=== PATIENT | female | born 1970 | race Caucasian/White ===

== ENCOUNTER 2019-06-24 14:49 | Emergency (ER) | payer MEDICAID, SELFPAY ==
[2019-06-24 14:53] VITALS: BP 157/92; PULSE 84; RESP 16; TEMP 36.6; O2SAT 98
--- NOTE | 2019-06-24 15:37 | W.ED.GENAD ---
Discharge Plan Disposition Patient Disposition: HOME Condition: Stable Discharge Details Chief Complaint: RespSymp Clinical Impression: Infection of eyelid, Sinusitis Primary Care Provider: Josh Thornton ED Provider: Marissa Diallo Home Meds and New Rx's Prescriptions: New doxycycline hyclate 100 mg tablet 100 mg PO BID 7 Days Qty: 14 RF: 0 Continued Breo Ellipta 1 EACH blister with device 1 ea Inhalation DAILY RF: 0 hydrochlorothiazide 25 mg Tablet 25 mg PO QAM RF: 0 levalbuterol tartrate [Xopenex HFA] 45 mcg/actuation Hfa Aerosol Inhaler 2 - 4 inh INHALATION Q6H RF: 0 Discharge Instructions Instructions: Sinusitis (ED), Blepharitis (ED) Additional Instructions: Apply the erythromycin ointment to your lower eyelid 4 times daily for the next 5 days. Apply warm compresses to the affected area several times daily for 20 minutes at a time. If you have no relief in symptoms with warm compresses or ointment, you can start the oral antibiotics. Alternate tylenol and motrin as needed and directed for pain. Follow-up with your primary care doctor in 1 week. Return to the emergency department with any worsening or new concerning symptoms. Discharge Data Discharge Date/Time-TO BE ENTERED AT DEPARTURE: 06/24/19 15:50 Discharge Physician: Marissa Diallo Medical Decision Making 48-year-old female with a history of asthma, migraines and obesity presents with left lower eye and left facial pain and swelling since yesterday. Patient states she has a chronic issue with her sinuses in which they easily fill with fluid but she states ENT told her medical science is not there yet to help this issue . She states the area underneath her left eye and left facial cheek is swollen, tender to touch and worse when laying flat. She denies any known fever. She denies any green nasal discharge, sore throat, ear pain or coughing. She denies any vision changes, dizziness or headache. Left lower eyelid mild to moderately edematous, erythematous with tenderness to palpation. Left maxillary sinus demonstrates minimal fullness and moderate tenderness to palpation. Remainder of ENT exam within normal limits. No submandibular swelling, trismus, drooling or lymphadenopathy. Remainder of eye exam within normal limits. PERRLA. EOMI. No pain with EOM. Differential diagnosis includes local cellulitis, sinusitis, blepharitis. Exam and history does not appear consistent with periorbital or orbital cellulitis or dental abscess. Will give a tube of erythromycin ointment to place to lower eyelid as well as a prescription for Augmentin if no relief with ointment. She is advised to apply warm compresses to area, alternate Tylenol and Motrin. Advised to follow up with the primary care doctor for re-evaluation. Usual and customary return precautions given prior to discharge. Medical Records Medical records reviewed: Yes I reviewed the patient's medical records. HPI General Mode of arrival: ambulatory. Date/Time Provider Initiated Documentation: 06/24/19 15:18. Limitations to Documentation: no limitations. Information obtained by: patient. History of Present Illness 48 year old F presents to the emergency department with the chief complaint of left lower eyelid pain/swelling, L facial pain , and is localized to the face. Patient reports no radiation. Patient started experiencing this day(s) (1) and it has been constant. No relieving factors improve symptom(s), Other factors that worsen symptoms (laying flat) . Patient notes denies confusion, chest pain, cough, diaphoresis, fever/chills, headaches, loss of appetite, malaise, nausea/vomiting, rash, seizure, shortness of breath, syncope and weakness. Patient did receive the following treatments prior to arrival, other (warm tea bags to L eye/face) Related Data Home Medications Medication Instructions Recorded Confirmed Breo Ellipta 1 ea INHALATION DAILY 12/08/16 06/24/19 doxycycline hyclate 100 mg PO BID 7 Days #14 tab 06/24/19 hydrochlorothiazide 25 mg PO QAM 06/24/19 06/24/19 levalbuterol tartrate [Xopenex HFA] 2 - 4 inh INHALATION Q6H 06/24/19 06/24/19 Previous Rx's Medication Instructions Recorded doxycycline hyclate 100 mg PO BID 7 Days #14 tab 06/24/19 Allergies Allergy/AdvReac Type Severity Reaction Status Date / Time amoxicillin [Amoxicillin] Allergy Mild Hives Unverified 06/24/19 15:00 atenolol AdvReac Mild not Unverified 06/24/19 15:00 tolerated by pt General Stated Complaint: RespSymp KIMMIE: 4 Review of Systems All systems reviewed & are unremarkable except as noted in HPI and below Constitutional Constitutional: Reports as per HPI, Denies chills and Denies fever(s) Eyes Eyes: Denies blurry vision ENT Ears, Nose, Mouth, and Throat: Denies dizziness, Denies sore throat and Denies throat swelling Cardiovascular Cardiovascular: Denies chest pain and Denies dyspnea Respiratory Respiratory: Denies cough and Denies dyspnea Gastrointestinal Gastrointestinal: Denies abdominal pain, Denies diarrhea and Denies vomiting Genitourinary Genitourinary: Denies hematuria and Denies dysuria Musculoskeletal Musculoskeletal: Denies back pain and Denies numbness Integumentary/Breasts Skin/Breast: Denies lesions and Denies rash Neurologic Neurologic: Denies dizziness, Denies focal weakness and Denies numbness Allergic/Immunologic Allergic/Immunologic: Denies throat swelling [facility] Social History Smoking/Tobacco Use Status: Never Alcohol Intake: never Drug use: Never Do you feel safe at home: Yes Do you feel safe in your relationship?: Yes Exam Const General: cooperative, healthy appearing and no acute distress HENMT Head: normal to inspection Ears: hearing grossly normal bilaterally, external ears normal and TM's normal bilaterally General nose exam: external nose normal Face and sinus: normal facial exam and sinus tenderness maxillary Face images: 1. Erythema, edema and tenderness to palpation of left lower eyelid. Mouth: oral mucosae normal Teeth and gingiva: dentition normal Throat: posterior oropharynx normal Eyes General: appearance normal, both eyes and all related structures Neck Neck: normal visual inspection, no lymphadenopathy, no meningeal signs, trachea midline, supple, no anterior neck swelling and No submandibular swelling Resp Effort & Inspection: normal respiratory effort and able to speak in complete sentences Cardio Rate: regular rate Skin General skin exam: no rashes or lesions noted Neuro General: alert, awake and oriented x3 Motor: muscle tone normal throughout Extrem General: normal to inspection and full ROM Psych Appearance: grossly normal Affect: normal affect Course Vital Signs Vital signs: Vital Signs Temperature 97.9 F 06/24/19 14:53 Pulse 84 06/24/19 14:53 Respiratory Rate 16 06/24/19 14:53 Blood Pressure 157/92 H 06/24/19 14:53 Pulse Oximetry 98 06/24/19 14:53 Temperature 97.9 F 06/24/19 14:53 Temperature Source Temporal Artery Scan 06/24/19 14:53 Pulse 84 06/24/19 14:53 Respiratory Rate 16 06/24/19 14:53 Respiratory Effort Non-Labored 06/24/19 14:59 Blood Pressure 157/92 H 06/24/19 14:53 Blood Pressure Position Sitting 06/24/19 14:53 Pulse Oximetry 98 06/24/19 14:53 Oxygen Delivery Method Room Air 06/24/19 14:53 Oxygen Flow Rate 0 06/24/19 14:53 Pain Level 5 06/24/19 14:53
[2019-06-24] MEDS: Erythromycin Ophth Oint 3.5 GM TUBE OU (15:50)
== END 2019-06-24 15:50 | disposition home or self-care (01) ==
PROVIDERS: Emergency Provider Physician Assistant; PCP Family Medicine
DX: J01.00 Acute maxillary sinusitis, unspecified (principal); H01.9 Unspecified inflammation of eyelid
CPT/HCPCS: 99283

== ENCOUNTER 2020-07-14 10:44 | Emergency (ER) | payer MEDICAID, SELFPAY ==
[2020-07-14 10:53] VITALS: BP 139/72; PULSE 76; RESP 14; TEMP 36.8; O2SAT 98
--- NOTE | 2020-07-14 12:07 | ED.GENADUL_ITS ---
Discharge Plan Disposition Patient Disposition: HOME Condition: Stable Discharge Details Clinical Impression: Asthma Primary Care Provider: Derik Hurst ED Provider: Kyree De La Rosa Home Meds and New Rx's Prescriptions: Continued Breo Ellipta 1 EACH blister with device 1 ea Inhalation DAILY RF: 0 hydrochlorothiazide 25 mg Tablet 25 mg PO QAM RF: 0 levalbuterol tartrate [Xopenex HFA] 45 mcg/actuation Hfa Aerosol Inhaler 2 - 4 inh INHALATION Q6H RF: 0 Discharge Instructions Instructions: Asthma (ED) Additional Instructions: At this time your vital signs are unremarkable, lungs are clear, I see no clear indication to change your medication or initiate an emergent work-up. Please continue your current medications. I personally spoke with your primary care provider, Dr. Hurst who is aware of your visit and comfortable with you being discharged from the ER. Please contact his office today or tomorrow for prompt outpatient reevaluation. 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 Her medication has been changed from Breo to Symbicort and she is not responding as quickly as she typically does. She tells me that her breathing is at baseline right now as she is not having a flareup of her symptoms here in the ER. Clinically she appears well, nontoxic. She does whisper which makes HPI slightly difficult. Clinically her lungs are clear to auscultation, O2 sats are 98% on room air, she is afebrile, no coughing. She speaks in full sentences without difficulty. Denies pain or swelling. She states this is a typical exacerbation of her asthma. She tells me that coming to the ER for this does not typically help her because she does not respond well to neb treatments he does not want one. Clinically I see no clear indication for chest x-ray. I will reach out to her primary care provider, Dr. Hurst, as she tells me she was sent here from their office. I was able to speak with Dr. Hurst who was unaware of the patient being sent to the ER by his office. He does acknowledge that they are i n the process of trying to get her Breo preauthorized through her insurance so she can get back on her typical medication. He tells me that he is aware of her presentation, and has never seen her actively having a flareup, and knows that she has been evaluated by pulmonology as well. Based upon my evaluation here in the ER he feels as though discharge from the ER is reasonable. He does not yessica mmend adding on any additional medications. He is happy to follow the patient as an outpatient. Patient comfortable with this plan and has no additional questions or concerns. There is no clear indication to initiate steroid therapy. She will return to the ER for new or worsening symptoms. Otherwise contact her primary care office over the or tomorrow to set up an outpatient appointment. Medical Records Medical records reviewed: Yes I reviewed the patient's medical records. HPI General Mode of arrival: ambulatory . Date/Time Provider Initiated Documentation: 07/14/20 10:47 . Limitations to Documentation: no limitations . Information obtained by: patient . HPI Narrative: This is a 49-year-old female who reports past medical history of asthma, hypertension. 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 A couple days ago she was exposed to the cold and reports her flareup of asthma came on. She was previously on Breo but there was complications with prior authorization from her insurance company so she has been subsequently changed to Symbicort. She tells me that this is very typical for an asthma flareup. She at times has chest congestion-wheezing, but none now. She says the only thing affected right now is her voice and it forces her to speak in whispers. She states that this is a very atypical presentation for her asthma. She tells me that she does not respond well to nebulizers and does not want a treatment. She feels as though the next step is typically steroids however in her own opinion she has not reached that point yet. She believes the best course of action is to let this play out another day or 2 with the Symbicort, hope that she responds, and if not she would like to be placed on steroids. She states that when taking a deep breath or coughing she has mild discomfort in her chest otherwise denies any chest pain. She denies fever, shortness of breath, back pain abdominal pain, nausea, vomiting, pain or swelling her legs. She contacted her primary care office and was directed to the ER. Related Data Home Medications Medication Instructions Recorded Confirmed Kimberly Dwyerta 1 ea INHALATION DAILY 12/08/16 06/24/19 hydrochlorothiazide 25 mg PO QAM 06/24/19 06/24/19 levalbuterol tartrate [Xopenex HFA] 2 - 4 inh INHALATION Q6H 06/24/19 06/24/19 Allergies Allergy/AdvReac Type Severity Reaction Status Date / Time amoxicillin [Amoxicillin] Allergy Mild Hives Unverified 07/14/20 10:58 atenolol AdvReac Mild not Unverified 07/14/20 10:58 tolerated by pt General Stated Complaint: RespSymp KIMMIE: 3 Review of Systems Constitutional Constitutional: Denies fever(s) and Denies headache(s) ENT Ears, Nose, Mouth, and Throat: Denies headache(s) and Denies neck pain Cardiovascular Cardiovascular: Reports chest pain (With coughing or taking a deep breath) and Denies dyspnea Respiratory Respiratory: Reports cough (Not currently), Denies dyspnea and Reports wheezing (Not currently) Gastrointestinal Gastrointestinal: Denies abdominal pain Musculoskeletal Musculoskeletal: Denies neck pain Neurologic Neurologic: Denies headache(s) [facility] Social History Smoking/Tobacco Use Status: Never Smoking risk assessment performed?: Yes Alcohol Intake: never Drug use: Never Substance use type: does not use Do you feel safe at home: Yes Do you feel safe in your relationship?: Yes Exam Const General: cooperative, healthy appearing, comfortable and no acute distress Orientation: alert and awake Other: Patient whispers, talks in a soft voice. Occasionally she does speak in a deeper but appears to be normal voice. Voice does not sound hoarse, not a hot potato voice. [facility] Head: normal to inspection, normocephalic and atraumatic Eyes General: appearance normal, both eyes and all related structures Conjunctivae: conjunctivae normal Sclera: sclerae normal Neck Neck: normal visual inspection, full ROM, no meningeal signs, trachea midline and supple Resp Effort & Inspection: normal respiratory effort and able to speak in complete sentences Auscultation: clear to auscultation bilaterally Cardio Rate: regular rate Rhythm: regular rhythm Skin General skin exam: no rashes or lesions noted Neuro General: patient alert, patient awake, moves all extremities and no focal motor deficits Cognition: normal cognition Speech: speech normal Sensory Exam: no sensory deficits noted Psych Appearance: grossly normal Mental Status: mental status grossly normal Course Vital Signs Vital signs: Vital Signs Temperature 36.8 C 07/14/20 10:53 Pulse 76 07/14/20 10:53 Respiratory Rate 14 07/14/20 10:53 Blood Pressure 139/72 07/14/20 10:53 Pulse Oximetry 98 07/14/20 10:53 Temperature 36.8 C 07/14/20 10:53 Temperature Source Skin 07/14/20 10:53 Pulse 76 07/14/20 10:53 Respiratory Rate 14 07/14/20 10:53 Blood Pressure 139/72 07/14/20 10:53 Blood Pressure Position Sitting 07/14/20 10:53 Pulse Oximetry 98 07/14/20 10:53 Oxygen Delivery Method Room Air 07/14/20 10:53 Oxygen Flow Rate 0 07/14/20 10:53 Pain Level 7 07/14/20 10:53
== END 2020-07-14 12:19 | disposition home or self-care (01) ==
PROVIDERS: Emergency Provider Physician Assistant; PCP Family Medicine
DX: J45.998 Other asthma (principal)
CPT/HCPCS: 99282; 99283

== ENCOUNTER 2021-05-19 02:42 | Outpatient (CLI) | payer MEDICAID, SELFPAY ==
[2021-05-19 10:37] LABS: Hemoglobin A1C 6.9 % (<5.7)
[2021-05-19 11:58] LABS: ALT 26 U/L (14-59); AST 14 U/L (15-37); Albumin 3.9 g/dL (3.4-5.0); Alkaline Phosphatase 69 U/L (46-116); Anion Gap 12.9 mmol/L (3-11); BUN 18 mg/dL (7-18); Bilirubin, Total 0.3 mg/dL (0.2-1.0); CO2 24.1 mmol/L (21.0-32.0); CREATININE 0.8 mg/dL (0.55-1.02); Calcium 9.1 mg/dL (8.5-10.1); Chloride 100 mmol/L (98-107); Glucose 148 mg/dL (74-106); Potassium 3.7 mmol/L (3.5-5.1); Sodium 137 mmol/L (136-145)
== END 2021-05-19 02:43 | disposition home or self-care (01) ==
LOC: LBO 02:42
PROVIDERS: PCP Family Medicine; Visit Provider Family Medicine
DX: E11.9 Type 2 diabetes mellitus without complications (principal)
CPT/HCPCS: 36415; 80053; 83036

== ENCOUNTER 2021-07-06 02:09 | Outpatient (CLI) | payer MEDICAID, SELFPAY ==
--- NOTE | 2021-07-06 14:45 | DI.MRI_ITS ---
Exam(s) MR BRAIN WO EXAM: MR BRAIN WO CLINICAL HISTORY: COGNITIVE DYSFUNCTION, F09; DYSLEXIA, R48.0 TECHNIQUE: Multiplanar multisequence MRI of the brain was performed. COMPARISON: CT SINUS CT WITHOUT CONTRAST from 05/12/2016 FINDINGS: CEREBRAL PARENCHYMA: There is no evidence of intracranial hemorrhage, mass effect, or shift of midline structures. There are no extra-axial fluid collections. Ventricles are not enlarged or shifted. There is no significant focal signal abnormality in the cerebellar hemispheres nor within the deandra, m idbrain, and thalami. There is no abnormal signal abnormality in the periventricular white matter. There is no significant focal signal abnormality evident on diffusion imaging to suggest acute ischem ic event. SWI: No microhemorrhages evident. PITUITARY GLAND: No mass nor parasellar abnormality. No obvious abnormality in the cavernous sinuses. FLOW VOIDS: The expected flow void are noted. No evidence of obvious aneurysm nor obvious vascular ma lformation. PARANASAL SINUSES: The visualized paranasal sinuses appear unremarkable. No obvious finding ORBITS: No obvious findings. IMPRESSION: No significant intracranial findings on this noninfused MRI scan of the brain. DATA REPOSITORY:
== END 2021-07-06 02:29 ==
PROVIDERS: PCP Family Medicine; Visit Provider Psychiatry & Neurology Neurology
DX: G31.84 Mild cognitive impairment of uncertain or unknown etiology (principal); R48.0 Dyslexia and alexia
CPT/HCPCS: 70551

== ENCOUNTER 2021-07-21 01:30 | Outpatient (CLI) | payer MEDICAID, SELFPAY ==
--- NOTE | 2021-07-21 11:40 | DI.MAMMO_ITS ---
Exam(s) MAMMO SCREENING EXAM: MAMMO SCREENING CLINICAL HISTORY: SCREENING, Z12.31 TECHNIQUE: Bilateral full field digital CC and MLO mammographic images were obtained with 3D tomosyn thesis and utilizing computer aided detection (CAD). COMPARISON: Available for comparison. FINDINGS: Masses/Architectural Distortion: None seen. Microcalcifications: No suspicious pleomorphic-type are seen. Skin Thickening/Nipple Retraction: None. IMPRESSION: 1. No significant interval change with no specific features of malignancy noted. 2. Unless there is more urgent need, screening mammography is recommended, as per [employer] guidelines. BI-RADS Category 1 - Negative Breast Density - Category C - Heterogeneously dense Breast density category C or D implies that the patient has dense breast tissue. Dense breast tissue is very common and is not abnormal but dense breast tissue can make it harder to find cancer on a ma mmogram. Also, dense breast tissue may increase their breast cancer risk. This information about the result of the mammogram report was provided to the patient to raise their awareness. Use this report when you speak with the patient about their risks for breast cancer, which includes their family hist ory. At that time, you may recommend for more screening tests (Ultrasound or MRI) as they might be us eful based on their risk. A negative radiographic report should not delay biopsy if a dominant or clinically suspicious mass is present. Up to ten percent of cancers are not identified on mammography. A negative report may reinforce clinical impression. Adenosis and dense breasts may obscure an underlying neoplasm. False positive reports average 6 to 10%. Patient will receive a letter notifying them of these results.
== END 2021-07-21 01:50 ==
PROVIDERS: PCP Family Medicine; Visit Provider Family Medicine
DX: Z12.31 Encounter for screening mammogram for malignant neoplasm of breast (principal)
CPT/HCPCS: 77063; 77067

== ENCOUNTER 2022-10-22 01:49 | Outpatient (CLI) | payer MEDICAID, SELFPAY ==
[2022-10-22 09:36] LABS: ALT 34 U/L (14-59); AST 16 U/L (15-37); Albumin 3.8 g/dL (3.4-5.0); Alkaline Phosphatase 92 U/L (46-116); Anion Gap 12.4 mmol/L (3-11); BUN 15 mg/dL (7-18); Bilirubin, Total 0.3 mg/dL (0.2-1.0); CO2 27.6 mmol/L (21.0-32.0); CREATININE 0.8 mg/dL (0.55-1.02); Calcium 9.4 mg/dL (8.5-10.1); Chloride 98 mmol/L (98-107); Estimated GFR 89.71 (mL/min/1.73m2); Glucose 235 mg/dL (74-106); Potassium 3.4 mmol/L (3.5-5.1); Sodium 138 mmol/L (136-145); Total Protein 7.6 g/dL (6.4-8.2)
[2022-10-22 09:38] LABS: Hemoglobin A1C 10.3 % (<5.7)
== END 2022-10-22 01:50 | disposition home or self-care (01) ==
LOC: LBO 01:49
PROVIDERS: PCP Family Medicine; Visit Provider Family Medicine
DX: E11.9 Type 2 diabetes mellitus without complications (principal); I10 Essential (primary) hypertension
CPT/HCPCS: 36415; 80053; 83036

== ENCOUNTER 2023-11-08 11:40 | Outpatient (REF) | payer MEDICAID, SELFPAY ==
--- NOTE | 2023-11-08 15:15 | PAPFT_PTH ---
PATIENT: Kindra Lucero LOC: [facility] U#:[id number] AGE/SX: 52/F ROOM: RE11/08/[address]: Greg Jeffers DNP : 1970 BED: DIS: 11/08/2023 SPEC #: [id number] RECD: 11/09/23 13:08 STATUS: [place] REVeronica #: [id number] KORIN: 11/08/23 15:[address]: Greg Paredes DEPT: [facility] Cytology RECD BY: Magaly Knott Tissues: 1 - CX/ENDOCX FOR PAP SMEARS Procedures: PAP THIN PREP/UVM Screening HPV DNA PROBE Comments: [id number]
== END 2023-11-08 11:41 | disposition home or self-care (01) ==
LOC: LBN 11:40
PROVIDERS: PCP Nurse Practitioner Family; Visit Provider Nurse Practitioner Family
DX: N89.8 Other specified noninflammatory disorders of vagina (principal)
CPT/HCPCS: 88142; 87480; 87510; 87624; 87660

== ENCOUNTER 2023-11-16 05:33 | Outpatient (CLI) | payer MEDICAID, SELFPAY ==
[2023-11-16 13:00] LABS: HCT 38.6 % (36.0-46.0); MCH 29.2 pg (27.0-33.0); MCHC 33.7 % (32.0-36.0); MCV 87 fL (80-95); MPV 10.2 fL (8.0-11.0); Platelet Count 271 10^3/uL (130-400); RBC 4.45 10^6/uL (3.93-5.22); RDW 12.1 % (11.7-14.6); RDW-SD 38.9 fL; WBC 4.74 10^3/uL (4.4-10.8)
[2023-11-16 13:25] LABS: ALT 53 U/L (14-59); AST 29 U/L (15-37); Alkaline Phosphatase 86 U/L (46-116); Anion Gap 11.8 mmol/L (3-11); BUN 12 mg/dL (7-18); Bilirubin, Total 0.3 mg/dL (0.2-1.0); CO2 24.2 mmol/L (21.0-32.0); CREATININE 0.8 mg/dL (0.55-1.02); Calcium 9.4 mg/dL (8.5-10.1); Calculated LDL 139 mg/dL (<100); Chloride 98 mmol/L (98-107); Cholesterol 268 mg/dL (<200); Glucose 213 mg/dL (74-106); HDL Cholesterol 52 mg/dL (40-60); Potassium 3.6 mmol/L (3.5-5.1); Sodium 134 mmol/L (136-145); TSH (W/Ref FT4) 1.71 uIU/mL (0.36-3.74); Total Protein 7.5 g/dL (6.4-8.2); Triglyceride 388 mg/dL (<150)
== END 2023-11-16 05:34 | disposition home or self-care (01) ==
LOC: LBO 05:33
PROVIDERS: PCP Nurse Practitioner Family; Visit Provider Nurse Practitioner Family
DX: E11.9 Type 2 diabetes mellitus without complications (principal); R53.83 Other fatigue
CPT/HCPCS: 36415; 80053; 80061; 85027; 84443

== ENCOUNTER → 2023-12-12 03:21 | Outpatient (CLI) | payer MEDICAID, SELFPAY ==
--- NOTE | 2023-12-12 07:15 | DI.MAMMO_ITS ---
Exam(s) MAMMO SCREENING EXAM: MAMMO SCREENING CLINICAL HISTORY: screening,z12.39. TECHNIQUE: Bilateral full field digital CC and MLO mammographic images were obtained with 3D tomosyn thesis and utilizing computer aided detection (CAD). COMPARISON: Prior mammograms were reviewed. FINDINGS: There has been no significant change in the appearance and distribution of the fibroglandular tissue. There are no new spiculated masses nor malignant appearing microcalcification groups. There is no significant architectural distortion nor skin thickening-retraction. IMPRESSION: No radiographic evidence of malignancy. BI-RADS Category 1 - Negative Breast Density - Category C - Heterogeneously dense Breast density Category C or D implies that the patient has dense breast tissue. Dense breast tissue can make it harder to find cancer on a mammogram. Dense breast tissue is also associated with an incr eased risk of breast cancer. This information about the result of the mammogram report was provided to the patient to raise their awareness. Use this report when you speak with the patient about their risks for breast cancer, which includes their family history. At that time, you may recommend additional screening tests (Ultrasoun d or MRI) as these tests may add significant information. A negative radiographic report should not delay biopsy if a dominant or clinically suspicious mass is present. Up to ten percent of cancers are not identified on mammography. A negative report may reinforce clinical impression. Adenosis and dense breasts may obscure an underlying neoplasm. False positive reports average 6 to 10%. Patient will receive a letter notifying them of these results.
== END ==
PROVIDERS: PCP Nurse Practitioner Family; Visit Provider Nurse Practitioner Family
DX: Z12.39 Encounter for other screening for malignant neoplasm of breast (principal)
CPT/HCPCS: 77063; 77067

== ENCOUNTER 2024-07-09 03:35 | Outpatient (CLI) | payer MEDICAID, SELFPAY ==
[2024-07-09] MEDS: Levalbuterol HFA 15 GM INH 4 PUFF IH (15:05)
[2024-07-09] MEDS: Inhaler, Assist Device 1 EACH MC (15:05)
--- NOTE | 2024-07-24 12:41 | W.PFT ---
Date of service: 07/09/24 Time of Service: 13:04 Pulmonary Function Test Result Indications: Asthma Interpretation Spirometry: There is no airflow limitation. No bronchodilator response. Lung Volumes: Normal lung volumes Airway Pressure: Normal airways resistance Impression Normal pulmonary function testing Clinical Correlation therefore is recommended.
== END 2024-07-09 03:36 | disposition home or self-care (01) ==
LOC: RT 03:35
PROVIDERS: PCP Nurse Practitioner Family; Visit Provider Student in an Organized Health Care Education/Training Program
DX: J45.909 Unspecified asthma, uncomplicated (principal)
CPT/HCPCS: 94060; 94726

== ENCOUNTER 2024-10-17 01:55 | Outpatient (CLI) | payer MEDICAID, SELFPAY ==
[2024-10-17 13:12] LABS: Abs Immature Grans 0.02 10^3/uL (0.0-0.06); Absolute Basophil Count 0.04 10^3/uL (0.0-0.2); Absolute Eosinophil Count 0.24 10^3/uL (0.0-0.7); Absolute Lymphocyte Count 1.82 10^3/uL (1.2-3.4); Absolute Monocyte Count 0.35 10^3/uL (0.1-0.8); Absolute Neutrophil Count 3.95 10^3/uL (1.2-6.7); Basophils % 0.6 %; Eosinophils % 3.7 %; HCT 40.6 % (36.0-46.0); HGB 13.7 g/dL (11.2-15.7); Immature Grans % 0.3 %; Lymphocytes % 28.3 %; MCHC 33.7 % (32.0-36.0); MCV 86 fL (80-95); MPV 9.9 fL (8.0-11.0); Monocytes % 5.5 %; Neutrophils % 61.6 %; Platelet Count 292 10^3/uL (130-400); RBC 4.72 10^6/uL (3.93-5.22); RDW 12.5 % (11.7-14.6); RDW-SD 39.2 fL; WBC 6.42 10^3/uL (4.4-10.8)
[2024-10-19 09:33] LABS: IgE 18 IU/mL (<158)
== END 2024-10-17 01:56 | disposition home or self-care (01) ==
LOC: LBO 01:55
PROVIDERS: PCP Nurse Practitioner Family; Visit Provider Physician Assistant Surgical
DX: J45.909 Unspecified asthma, uncomplicated (principal)
CPT/HCPCS: 36415; 82785; 85025

== ENCOUNTER 2025-01-04 00:58 | Outpatient (CLI) | payer MEDICAID, SELFPAY ==
[2025-01-04 12:03] LABS: ALT 40 U/L (14-59); AST 18 U/L (15-37); Albumin 3.9 g/dL (3.4-5.0); Alkaline Phosphatase 76 U/L (46-116); Anion Gap 10.1 mmol/L (3-11); BUN 14 mg/dL (7-18); Bilirubin, Total 0.4 mg/dL (0.2-1.0); CO2 25.9 mmol/L (21.0-32.0); Calcium 9.6 mg/dL (8.5-10.1); Chloride 102 mmol/L (98-107); Estimated GFR 103.35 (mL/min/1.73m2); Glucose 128 mg/dL (74-106); Potassium 3.7 mmol/L (3.5-5.1); Sodium 138 mmol/L (136-145); TSH (W/Ref FT4) 1.51 uIU/mL (0.36-3.74); Total Protein 7.4 g/dL (6.4-8.2)
[2025-01-09 16:13] LABS: Apolipoprotein B, Serum 134 mg/dL (48-124); Beta VLDL Cholesterol Not Detected mg/dL (<15); Beta VLDL Triglycerides Not Detected mg/dL (<15); Cholesterol, Total, CDC 255 mg/dL; Chylomicron Cholesterol 3 mg/dL; Chylomicron Triglycerides 61 mg/dL; HDL Cholesterol, CDC 52 mg/dL (>=50); LpX Not detected; Triglycerides, CDC 251 mg/dL; VLDL Triglycerides 115 mg/dL (<120)
== END 2025-01-04 00:59 | disposition home or self-care (01) ==
PROVIDERS: PCP Nurse Practitioner Family; Visit Provider Nurse Practitioner Family
DX: Z13.220 Encounter for screening for lipoid disorders (principal); E11.9 Type 2 diabetes mellitus without complications; R53.83 Other fatigue
CPT/HCPCS: 36415; 80053; 80061; 82172; 82664; 84443

== ENCOUNTER 2025-01-28 02:41 | Outpatient (CLI) | payer MEDICAID, SELFPAY ==
--- NOTE | 2025-01-28 07:15 | DI.MAMMO_ITS ---
Exam(s) MAMMO SCREENING EXAM: MAMMO SCREENING CLINICAL HISTORY: screening,z12.39. TECHNIQUE: Bilateral full field digital CC and MLO mammographic images were obtained with 3D tomosynthesis and utilizing computer aided detection (CAD). COMPARISON: Prior mammograms were reviewed. FINDINGS: No new left breast findings. In the right breast on the MLO view there is a suggestion of a nodular density located 4 cm in from the nipple, measuring approximately 5 x 4 mm. Spot compression view recommended. Benign-appearing microcalcifications in both breasts are again noted. There is no significant architectural distortion nor skin thickening-retraction. IMPRESSION: 1. No radiographic evidence of malignancy in left breast. 2. Possible nodule in the right breast as described above. Spot compression MLO view and complete breast ultrasound recommended. BI-RADS Category 0 - Incomplete: Need additional imaging evaluation Breast Density - Category C - The breast are heterogeneously dense, which may obscure small masses. Breast density Category C or D implies that the patient has dense breast tissue. Dense breast tissue can make it harder to find cancer on a mammogram. Dense breast tissue is also associated with an increased risk of breast cancer. This information about the result of the mammogram report was provided to the patient to raise their awareness. Use this report when you speak with the patient about their risks for breast cancer, which includes their family history. At that time, you may recommend additional screening tests (Ultrasound or MRI) as these tests may add significant information. A negative radiographic report should not delay biopsy if a dominant or clinically suspicious mass is present. Up to ten percent of cancers are not identified on mammography. A negative report may reinforce clinical impression. Adenosis and dense breasts may obscure an underlying neoplasm. False positive reports average 6 to 10%. Patient will receive a letter notifying them of these results.
== END 2025-01-28 03:01 ==
LOC: DI 02:41
PROVIDERS: PCP Nurse Practitioner Family; Visit Provider Nurse Practitioner Family
DX: Z12.31 Encounter for screening mammogram for malignant neoplasm of breast (principal); R92.333 Mammographic heterogeneous density, bilateral breasts
CPT/HCPCS: 77063; 77067

== ENCOUNTER 2025-01-30 10:07 | Outpatient (CLI) | payer MEDICAID, SELFPAY ==
--- NOTE | 2025-01-30 | DI.MAMMO_ITS ---
Exam(s) [facility] MAMMO SCREEN CALL BACK UNI US BREAST RT COMPLETE EXAM: MG MAMMO SCREEN CALL BACK UNI CLINICAL HISTORY: F/U MAMMO, R92.8,? NODULE RT BREAST. TECHNIQUE: Craniocaudal and mediolateral oblique spot compression digital Mammography views of the rightbreast with Tomosynthesis and right breast ultrasound. COMPARISON: [facility] MAMMO SCREENING from 01/28/2025 and exams back to 2019 FINDINGS: Mammography/Tomosynthesis: Masses: None seen. Findings are consistent with overlying fibroglandular tissue. Architectural Distortion: None seen. Microcalcifictions: No suspicious pleomorphic-type are seen. Skin Thickening/Nipple Retraction: None. Right breast US: Echotexture: Normal appearance of the glandular tissue. Shadowing: No suspicious foci. Cyst: None. Solid lesions: None seen. Ductal dilation: None. IMPRESSION: 1. No evidence of malignancy is noted. 2. Unless there is more urgent need, follow-up screening mammography is recommended, as per [employer] guidelines. 3. The findings were discussed with the patient on the date of the examination. BI-RADS Category 1 - Negative Breast Density - Category B - There are scattered areas of fibroglandular density. Breast density Category C or D implies that the patient has dense breast tissue. Dense breast tissue can make it harder to find cancer on a mammogram. Dense breast tissue is also associated with an increased risk of breast cancer. This information about the result of the mammogram report was provided to the patient to raise their awareness. Use this report when you speak with the patient about their risks for breast cancer, which includes their family history. At that time, you may recommend additional screening tests (Ultrasound or MRI) as these tests may add significant information. A negative radiographic report should not delay biopsy if a dominant or clinically suspicious mass is present. Up to ten percent of cancers are not identified on mammography. A negative report may reinforce clinical impression. Adenosis and dense breasts may obscure an underlying neoplasm. False positive reports average 6 to 10%. Patient will receive a letter notifying them of these results.
== END 2025-01-30 10:27 ==
LOC: DI 10:08
PROVIDERS: PCP Nurse Practitioner Family; Visit Provider Nurse Practitioner Family
DX: Z12.31 Encounter for screening mammogram for malignant neoplasm of breast (principal); R92.8 Other abnormal and inconclusive findings on diagnostic imaging of breast
CPT/HCPCS: 76642; 77063; 77067

== ENCOUNTER 2025-05-15 01:39 | Outpatient (CLI) | payer MEDICAID, SELFPAY ==
[2025-05-15 10:52] LABS: Cholesterol 142 mg/dL (<200); HDL Cholesterol 60 mg/dL (>40)
== END 2025-05-15 01:40 | disposition home or self-care (01) ==
LOC: LBO 01:39
PROVIDERS: PCP Nurse Practitioner Family; Visit Provider Nurse Practitioner Family
DX: E78.00 Pure hypercholesterolemia, unspecified (principal)
CPT/HCPCS: 36415; 80061